=== PATIENT | female | born 1985 | race Caucasian/White ===

== ENCOUNTER 2024-03-24 09:59 | Outpatient (CLI) | payer OTHER, SELFPAY | END 2024-03-24 10:00 | disposition home or self-care (01) | PROVIDERS: PCP Family Medicine; Visit Provider Obstetrics & Gynecology | DX: Z01.419 Encounter for gynecological examination (general) (routine) without abnormal findings (principal); Z13.6 Encounter for screening for cardiovascular disorders | CPT/HCPCS: 80061 ==

== ENCOUNTER 2024-07-20 07:57 | Outpatient (CLI) | payer OTHER, SELFPAY ==
--- NOTE | 2024-07-20 08:15 | CRLHL7_ITS ---
For Patients: As a result of the Century Cures Act, medical imaging exams and procedure reports are released immediately into your electronic medical record. You may view this report before your referring provider. If you have questions, please contact your health care provider. BILATERAL DIGITAL SCREENING MAMMOGRAM WITH COMPUTER-AIDED DETECTION AND TOMOSYNTHESIS CLINICAL HISTORY: Routine screening exam. COMPARISON: None TECHNIQUE: Digital mammogram in CC and MLO projections including computer-aided detection (CAD). Tomosynthesis was used in this interpretation. BREAST COMPOSITION: The breasts are heterogeneously dense, which may obscure small masses. FINDINGS: RIGHT Breast: No suspicious findings. LEFT Breast: Nodular density within the upper outer quadrant, 7 cm from the nipple, 2 o`clock. Additional nodular density within the axillary tail upper outer quadrant, 7 cm from the nipple. IMPRESSION: LEFT breast asymmetry/mass. RECOMMENDATION: LEFT breast ultrasound recommended. The [facility] will contact the patient. BI-RADS Category 0: Incomplete: Need Additional Imaging Evaluation A lay language report of this examination will be provided to the patient. Dictated by Guerrero Mcclelland MD @ 07/20/2024 10:01:16 AM [id number] RD/Dictated by: Guerrero Mcclelland MD @ 07/20/2024 10:01:00 AM (Electronically Signed)
== END 2024-07-20 07:58 | disposition home or self-care (01) ==
LOC: MAMMO 07:57
PROVIDERS: PCP Family Medicine; Visit Provider Obstetrics & Gynecology
DX: Z12.31 Encounter for screening mammogram for malignant neoplasm of breast (principal); R92.333 Mammographic heterogeneous density, bilateral breasts; N63.20 Unspecified lump in the left breast, unspecified quadrant
CPT/HCPCS: 77063; 77067

== ENCOUNTER 2024-07-27 10:49 | Outpatient (CLI) | payer OTHER, SELFPAY ==
--- NOTE | 2024-07-27 11:15 | CRLHL7_ITS ---
For Patients: As a result of the Cures Act, medical imaging exams and procedure reports are released immediately into your electronic medical record. You may view this report before your referring provider. If you have questions, please contact your health care provider. LEFT BREAST ULTRASOUND CLINICAL HISTORY: LEFT breast mass/asymmetry. COMPARISON: 07/20/2024. TECHNIQUE: Real-time ultrasound imaging of LEFT breast with imaging documentation. Scanning was performed by both the technologist and the radiologist. FINDINGS: Targeted sonogram upper outer quadrant LEFT breast 1 o`clock 9 cm from the nipple performed. In this location, there is a solid circumscribed hypoechoic nodule measuring 1.4 x 0.6 x 1.5 cm. Search of remote records reveals that this was previously biopsied and was a fibroadenoma. Targeted sonogram LEFT breast 2 o`clock 7 cm from the nipple performed. In this location, there is a benign intramammary lymph node with normal central fatty hilum without cortical thickening. This lymph node measures 9 x 4 x 6 millimeters. Additional lobular hypoechoic solid nodule is present at 2 o`clock 3 cm from the nipple measuring 1.3 x 0.8 x 1.6 cm. This was previously biopsied as per search of remote records and was a fibroadenoma. IMPRESSION: Benign fibroadenomas LEFT breast and benign intramammary lymph node LEFT breast. No suspicious findings. RECOMMENDATIONS: Routine screening mammography. A lay language report of this examination will be provided to the patient. BI-RADS Category 2: Benign Dictated by Guerrero Mcclelland MD @ 07/27/2024 3:20:39 PM jj/Dictated by: Guerrero Mcclelland MD @ 07/27/2024 3:20:00 PM (Electronically Signed)
== END 2024-07-27 10:50 | disposition home or self-care (01) ==
PROVIDERS: PCP Family Medicine; Visit Provider Obstetrics & Gynecology
DX: N63.20 Unspecified lump in the left breast, unspecified quadrant (principal); R92.8 Other abnormal and inconclusive findings on diagnostic imaging of breast
CPT/HCPCS: 76642